=== PATIENT | female | born 1950 | race Caucasian/White ===

== ENCOUNTER 2016-09-23 10:25 | Emergency (ER) | payer OTHER ==
[~2016-09-23] VITALS: Ht 165.1 cm; Wt 112.3 kg
[~2016-09-23 10:25] MED LIST: ASPI-496 PO; ESOM20TA PO; GLUCOSAMINE 1,1 EACH PO; L.AC1CAP6 PO; LISI-424 PO; MULT-658 PO; OXYC-302 PO; THYROID; TRAM50TA2 PO
[2016-09-23] MEDS ORDERED: MORPHINE SULFATE 4 MG/ML, 1ML ONE (11:15)
[2016-09-23] MEDS ORDERED: ONDANSETRON 2MG/ML, 2ML ONE (11:16)
[2016-09-23] MEDS ORDERED: MORPHINE SULFATE 4 MG/ML, 1ML IVPush PRN (11:30)
[2016-09-23] MEDS ORDERED: ONDANSETRON 2MG/ML, 2ML IVPush ONE (11:30)
[2016-09-23] MEDS ORDERED: SODIUM CHLORIDE 0.9% 1,000ML IVBOLUS ONE (11:30)
[2016-09-23] MEDS ORDERED: HYDROmorphone 1 MG/ML, 1ML IV ONE (11:30)
[2016-09-23] MEDS ORDERED: HYDROmorphone 1 MG/ML, 1ML ONE ×2 (11:30→13:51)
[2016-09-23] MEDS ORDERED: OMEG1CAP30 PO (11:39)
[2016-09-23] MEDS ORDERED: MAGN100T6 PO (11:41)
[2016-09-23] MEDS ORDERED: CHOL-29 PO (11:41)
[2016-09-23 11:57] LABS: BLOOD UREA NITROGEN 29 mg/dL (7-18)
[2016-09-23 12:01] LABS: ASPARTATE AMINO TRANSFERASE 12 U/L (15-37)
[2016-09-23 13:38] LABS: PATH.CAST-FLAG NOT PRESENT; SPERM-FLAG NOT PRESENT; SRC-FLAG NOT PRESENT; XTAL-FLAG NOT PRESENT; YLC-FLAG NOT PRESENT
[2016-09-23 13:44] VITALS: BP 145/82
== END 2016-09-23 14:13 | disposition home or self-care (01) ==
LOC: ED 13:50
DX: S29.012A Strain of muscle and tendon of back wall of thorax, initial encounter (principal); M51.34 Other intervertebral disc degeneration, thoracic region; I10 Essential (primary) hypertension; X58.XXXA Exposure to other specified factors, initial encounter; Y93.89 Activity, other specified; Y99.8 Other external cause status; Y92.89 Other specified places as the place of occurrence of the external cause
CPT/HCPCS: 36415; 71101; 72072; 76700; 80053; 81001; 83690; 85025; 87086; 93005; 96374; 96375; 99285; J1170; J2405; J7030